=== PATIENT | female | born 1955 | race Caucasian/White ===

== ENCOUNTER 2022-05-06 07:23 | Day surgery (SDC) | payer MEDICARE ==
[2022-05-01 10:49] VITALS: BMI 28.3
--- NOTE | 2022-05-05 12:23 | HP ---
HISTORY AND PHYSICAL DATE OF SURGERY: 05/06/2022. HISTORY OF PRESENT ILLNESS: Manasa Simon is a 66-year-old patient seen with progressive right shoulder pain. We discussed options for treatment. She elected to proceed with right shoulder arthroscopy. Consent was obtained. Medical clearance was provided. PAST MEDICAL HISTORY: Hypertension, hyperlipidemia, hypothyroidism, and gastroesophageal reflux disease. PAST SURGICAL HISTORY: Hysterectomy. DAILY MEDICATIONS: 1. Atenolol. 2. Crestor. 3. Levothyroxine. 4. Lisinopril. 5. Omeprazole. ALLERGIES: Sulfa. SOCIAL HISTORY: She denies current tobacco use. PHYSICAL EVALUATION OF RIGHT SHOULDER: Flexion is 140 degrees, abduction is 110 degrees. External rotation is 30 degrees with pain, weakness, tenderness along the anterior lateral acromion and rotator cuff insertion. Impingement is positive at 90. Drop-arm sign is positive. Cross-body adduction sign is positive. Distal neurovascular exam is intact. RADIOGRAPHS: Radiographs of right shoulder revealed a type 2 acromion with acromioclavicular joint osteoarthritis. Right shoulder MRI revealed a partial rotator cuff tear along with a partial biceps tendon tear and impingement. IMPRESSION: 1. Right shoulder impingement with partial rotator cuff tear. 2. Right shoulder partial long head biceps tendon tear. 3. Right shoulder acromioclavicular joint osteoarthritis. 4. Hypertension. 5. Hypothyroidism. 6. Hyperlipidemia. PLAN: Right shoulder arthroscopy with subacromial decompression, possible arthroscopic rotator cuff repair, biceps tenotomy and debridement. MMODL / IJN: [id number] /
[2022-05-06] MEDS ORDERED: ONDANSETRON 4 MG/2 ML VIAL ONE (08:24)
[2022-05-06] MEDS ORDERED: LACTATED RINGERS 1,000 ML IV ONE ×2 (08:26→10:25)
[2022-05-06] MEDS ORDERED: DEXAMETHASONE SOD PHOSPHATE 4 MG/ML 1 ML VIAL IVP ONE (08:30)
[2022-05-06] MEDS ORDERED: MIDAZOLAM 2 MG/2 ML VIAL IVP ONE (08:57)
[2022-05-06] MEDS ORDERED: LIDOCAINE 2% INJ 20 MG/ML (2 ML VIAL) ONE (09:09)
[2022-05-06] MEDS ORDERED: PROPOFOL 10 MG/ML 20 ML VIAL IV ONE (09:09)
[2022-05-06] MEDS ORDERED: SUCCINYLCHOLINE CHLORIDE 200 MG/10 ML VIAL IV ONE (09:09)
[2022-05-06] MEDS ORDERED: GLYCOPYRROLATE 0.2 MG/ML 2 ML VIAL ONE (09:09)
[2022-05-06] MEDS ORDERED: DEXAMETHASONE SOD PHOSPHATE 4 MG/ML 1 ML VIAL ONE (09:09)
[2022-05-06] MEDS ORDERED: MIDAZOLAM 2 MG/2 ML VIAL ONE (09:09)
[2022-05-06] MEDS ORDERED: ROPIVACAINE 5 MG/ML 30 ML VIAL ONE (09:09)
[2022-05-06 10:43] VITALS: TEMP 96.8
--- NOTE | 2022-05-06 10:43 | P.OP ---
Date of Procedure: 05/06/22 Preoperative Diagnosis: Right shoulder impingement Postoperative Diagnosis: 1. Right shoulder rotator cuff tear 2. Right shoulder impingement 3. Right shoulder acromioclavicular joint osteoarthritis Procedure(s) Performed: 1. Right shoulder arthroscopic rotator cuff repair 2. Right shoulder arthroscopic subacromial decompression 3. Right shoulder arthroscopic Romy procedure Implants: 15.5 Arthrex swivel lock anchor Anesthesia: GETA, regional (Interscalene block) Surgeon: David Potter Financial Wellness Coach #1: Carlos Singh Estimated Blood Loss (ml): 10 Pathology: none sent Condition: stable Disposition: PACU Indications for Procedure: 66-year-old patient seen with progressive right shoulder pain. After having treatment options discussed, she elected to proceed with arthroscopy. Operative Findings: See description of procedure Description of Procedure: Patient underwent an interscalene block by department of anesthesia. The patient was then taken to the operative suite. The patient underwent a general anesthetic by the department of anesthesia. The patient was placed into a lateral position and secured. There was appropriate padding of the bony prominence. Right shoulder was then prepped and draped in normal sterile orthopedic fashion. We placed the extremity in 10 pounds of longitudinal traction. A posterior incision was now made for a posterior working portal site. The trocar and cannula were inserted into the glenohumeral joint. Arthroscopy was initiated. Spinal needle was now inserted anteriorly, to ascertain the anterior working portal site. An incision was now made in that area, a trocar was inserted followed by a probe. There was some mild superficial fraying of the superior labrum. I motorize shaver and debrided that. The glenohumeral joint appeared stable. The biceps was stable. The labrum was probed and was found to be stable. Instruments were now removed from glenohumeral joint. Utilizing the posterior working portal site, the trocar and cannula were inserted into the subacromial space. Arthroscopy initiated. I made an incision 2 fingerbreadths lateral to the acromion. I introduced my trocar followed by my ArthroCare ablator. I now began ablating thick subacromial bursal tissue, which exposed the undersurface of the anterior acromion. There was diminished subacromial space. There was a very prominent anterior acromion. A motorized bur was introduced and a subacromial decompression was performed. I also excised some osteophytes off the inferior aspect of the distal clavicle. The AC joint was visualized and noted to be fairly arthritic. The motorized bur was introduced in the anterior portal site and a Romy procedure was performed without difficulty, decompressing the AC joint nicely. I turned my attention to the rotator cuff. There was a 1.5 cm tear along the distal supraspinatus. I debrided the margins getting down to stable tendon tissue. I abraded the footprint with a motorized bur. With the assistance of Romaine KUHN I pased 3 everted mattress sutures through good bites of rotator cuff tendon. I punched on the footprint area for insertion of an anchor. All 6 limbs of suture were passed through the eyelet of a 5.5 Arthrex swivel lock anchor. I held the eyelet in position while Romaine KUHN tensioned all the sutures and deployed the anchor was good fixation noted. All residual suture limbs were now clipped. We had good compression of the tendon along the entire footprint. Instruments now removed from the portal sites. All portal sites were approximated with nylon suture. Sterile dressings were applied followed by a shoulder sling. Carlos KUHN assisted in this case. The patient was awakened, transferred to a bed, and taken to recovery in stable condition.
--- NOTE | 2022-05-06 11:03 | P.ANPRN ---
Procedure Note - Anesthesia - Nerve Block Performed Right Adductor Canal Single Time Out Performed: Yes Date of Procedure: 05/06/22 Procedure Start Time: 08:57 Procedure Stop Time: 09:02 Location of Patient: PreOp Indication: Acute Post-Operative Pain, Requested by Surgeon Sedation Type: Sedate with meaningful contact maintained Preparation: Sterile Prep Position: Supine Needle Types: Pajunk Needle Gauge: 21 Ultrasound used to visualize needle placement: Yes Ultrasound used to observe medication spread: Yes Blood Aspirated: No Pain Paresthesia on Injection Noted: No Resistance on Injection: Normal Image Stored and Saved: Yes Events: Uneventful and Well Tolerated (ropi .5% 20cc plus dexamethasone 4mg)
[2022-05-06] MEDS ORDERED: HYDROcodone/APAP 7.5-325MG 1 EACH TAB PO ONE (11:43)
[2022-05-06] MEDS ORDERED: HYDROcodone/APAP 7.5-325MG 1 EACH TAB ONE (11:43)
[2022-05-06 12:19] VITALS: BP 147/68; PULSE 55; RESP 20
== END 2022-05-06 12:54 | disposition home or self-care (01) ==
LOC: OR 07:23
PROVIDERS: ATTEND Orthopaedic Surgery
DX: M75.101 Unspecified rotator cuff tear or rupture of right shoulder, not specified as traumatic (principal); M19.011 Primary osteoarthritis, right shoulder; M75.41 Impingement syndrome of right shoulder; S46.111A Strain of muscle, fascia and tendon of long head of biceps, right arm, initial encounter; S43.431A Superior glenoid labrum lesion of right shoulder, initial encounter; M25.711 Osteophyte, right shoulder; I10 Essential (primary) hypertension; E78.5 Hyperlipidemia, unspecified; E03.9 Hypothyroidism, unspecified; Z79.890 Hormone replacement therapy; K21.9 Gastro-esophageal reflux disease without esophagitis; Z79.02 Long term (current) use of antithrombotics/antiplatelets; Z79.899 Other long term (current) drug therapy; Z88.5 Allergy status to narcotic agent; Z87.891 Personal history of nicotine dependence; Z86.718 Personal history of other venous thrombosis and embolism; M06.9 Rheumatoid arthritis, unspecified; Z79.82 Long term (current) use of aspirin; Z79.1 Long term (current) use of non-steroidal anti-inflammatories (NSAID); M35.00 Sjogren syndrome, unspecified; Z98.890 Other specified postprocedural states
CPT/HCPCS: 29824; 29826; 29827; 64447; 76942; C1713; J2250; J0330; J1100; J0690; J2405; J2795; J2704; J2001

== ENCOUNTER 2023-02-09 12:44 | Day surgery (SDC) | payer MEDICARE ==
[2023-02-03 15:25] VITALS: BMI 29.2
[~2023-02-09 12:44] MED LIST: SODIUM CHLORIDE 0.9% 1,000 ML IV SCH
[2023-02-09] MEDS ORDERED: SODIUM CHLORIDE 0.9% 500 ML 500 ML IV ONE (13:02)
[2023-02-09 13:24] VITALS: BP 176/73; PULSE 70; RESP 16; TEMP 98.4
[2023-02-09] MEDS ORDERED: LIDOCAINE 1% INJ 10MG/ML (20 ML MDV) ONE (14:04)
[2023-02-09] MEDS ORDERED: LIDOCAINE 1% INJ 10MG/ML (20 ML MDV) SQ ONE (14:20)
--- NOTE | 2023-02-09 14:37 | P.EPPROC ---
- EP Procedure Note Electrophysiology Procedure Note: Loop monitor implant Primary physicians: Pneumatic Tube Repairer: Dr. Layne Indication: Cryptogenic stroke, history of loss of consciousness, CREST syndrome Patient was brought to the EP lab in a fasting state. Written informed consent was obtained prior to the procedure. The left pectoral area was prepped and draped per protocol. Intravenous antibiotic was administered preoperatively. A subcutaneous Loop monitor was implanted successfully and the wound was closed per protocol. The device was programmed to detect significant cher- arrhythmic and tachy-arrhythmic events, per protocol. Device and programming details: Programmed for detection of atrial fibrillation, evaluation for cryptogenic stroke
== END 2023-02-09 15:01 | disposition home or self-care (01) ==
LOC: CATHEP 12:44
PROVIDERS: ATTEND Internal Medicine Clinical Cardiac Electrophysiology
DX: I63.9 Cerebral infarction, unspecified (principal); M34.1 CR(E)ST syndrome; I48.91 Unspecified atrial fibrillation; I10 Essential (primary) hypertension; E78.5 Hyperlipidemia, unspecified; F17.210 Nicotine dependence, cigarettes, uncomplicated; Z79.899 Other long term (current) drug therapy
CPT/HCPCS: 33285; 84443; C1764; J0690; J2001